=== PATIENT | female | born 1980 | race Caucasian/White ===

== ENCOUNTER 2020-01-26 13:31 | Emergency (ER) | payer BC ==
[~2020-01-26] VITALS: Ht 160 cm; Wt 96.9 kg
[2020-01-26] MEDS ORDERED: NS 1,000 ML IV ONE (15:15)
[2020-01-26] MEDS ORDERED: ISOVUE-370 76% 100ML VIAL As Ordered ONE (16:37)
[2020-01-26 17:15] VITALS: BP 131/74
--- NOTE | 2020-01-27 08:37 | ECGEPIP ---
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
--- NOTE | 2020-01-27 09:18 | REP ---
CT BRAIN WITHOUT CONTRAST: REASON: Syncopal episode. TECHNIQUE: 4.5 mm contiguous transaxial sections were obtained from the skull base to the cerebral convexities with thin cuts through the posterior fossa without the administration of intravenous contrast. FINDINGS: The ventricles and sulci are consistent with the patient's age. There are no extra-axial fluid collections. There is no mass effect. The deep cerebral white matter is consistent with the patient's age. The orbital and petrous structures, cerebellopontine angles, and posterior fossa are unremarkable. The sella turcica, cavernous, and paracavernous structures are essentially unremarkable. The visualized portions of the paranasal sinuses and mastoid air cells are clear. Images of the skull base show no gross abnormality. IMPRESSION: Essentially unremarkable CT examination of the brain. Electronically Signed by Quinn Stock DO 01/27/2020 09:38 A
--- NOTE | 2020-01-27 09:20 | REP ---
REASON: Pain in the neck. PRIORS: None. Vertebral body height and alignment is within normal limits. There is disc space narrowing and osteophytosis seen at the C5-6 level. The remainder of the disc spaces are relatively well preserved and symmetric in appearance. The facet joints are well aligned bilaterally. There is no acute fracture. There is no abnormal paraspinal soft tissue swelling. IMPRESSION: Mild chronic changes, as described above. Electronically Signed by Quinn Stock DO 01/27/2020 09:38 A
== END 2020-01-26 17:42 | disposition home or self-care (01) ==
LOC: M ED 13:31
DX: S00.93XA Contusion of unspecified part of head, initial encounter (principal); T14.8XXA Other injury of unspecified body region, initial encounter; V18.4XXA Pedal cycle driver injured in noncollision transport accident in traffic accident, initial encounter; Y92.410 Unspecified street and highway as the place of occurrence of the external cause; Y93.9 Activity, unspecified; Y99.9 Unspecified external cause status; Z88.1 Allergy status to other antibiotic agents
CPT/HCPCS: 70450; 72125; 80047; 84702; 93005; 96360; 99284; U0003